=== PATIENT | female | born 1985 | race Caucasian/White ===

== ENCOUNTER 2019-10-14 10:00 | Emergency (ER) | payer OTHER, SELFPAY ==
[2019-10-14 10:09] VITALS: BP 131/68; PULSE 86; RESP 20; TEMP 37.1; O2SAT 98
--- NOTE | 2019-10-14 10:17 | WPDEDEXPGENP ---
HPI - General Ped General Chief complaint: Upper Respiratory Infection Stated complaint: sore throat and congestion Time Seen by Provider: 10/14/19 10:18 Source: patient and RN notes reviewed Mode of arrival: ambulatory Limitations: no limitations Nursing Documentation: reviewed/agree History of Present Illness HPI narrative: This is a 34 years old female presents to the office for an evaluation of congestion/sore throat since last night. Denies fever however she felt warm this morning while she is at work.States, she is prone to bronchitis and strep. She does not smoke. Denies sick contact. She normally does not get influenza vaccine due to to concern for infection. Related Data Allergies Allergy/AdvReac Type Severity Reaction Status Date / Time amoxicillin Allergy Unknown Unknown Verified 10/14/19 10:23 Penicillins Allergy Unknown Unknown Verified 10/14/19 10:23 sulfamethoxazole Allergy Unknown Verified 10/14/19 10:23 [From Bactrim] trimethoprim [From Bactrim] Allergy Unknown Verified 10/14/19 10:23 Sulfa (Sulfonamide AdvReac Nausea and Verified 10/14/19 10:22 Antibiotics) Vomiting Pediatric Review of Systems : Review of Systems: CONSTITUTIONAL: Denies fever. Reports chills,warmth ENT: Denies ears pain. Reports sinus congestion/throat pain CARDIOVASCULAR: Denies chest pain RESPIRATORY: Denies dyspnea, wheezing. Reports little cough GASTROINTESTINAL: Denies abdominal pain, nausea, vomiting, diarrhea. GENITOURINARY: Denies urinary symptoms or discharge SKIN: Denies rash MUSCULOSKELETAL: Denies acute back pain NEUROLOGIC: Denies lightheaded PMFSH Social History Social History (Updated 10/14/19 @ 10:29 by OTIS Pena) Smoking status: Never smoker Comments At time of signature, I agree with nursing past medical, surgical, social and family history. There is no relevant family history pertinent to the presenting complaint. Pediatric Exam Narrative: Physical exam: GENERAL: This is a well-nourished, well-developed patient, in no apparent distress. Obese EYES: Sclera clear/white. Vision is grossly intact. EARS: External ears normal, auditory canals clear and without drainage, TMs normal without perforation. Hearing grossly intact. NOSE: External nose normal with no obvious nasal discharge, nares without redness, no rhinorrhea. THROAT: Mucous membranes moist, posterior pharynx erythema and edematous NECK: Neck supple, non-tender without lymphadenopathy, masses or thyromegaly. CARDIOVASCULAR: Regular rate and rhythm without murmurs, gallops, or rubs. RESPIRATORY: Clear to auscultation. Breath sounds equal bilaterally. No wheezes, rales, or rhonchi. GASTROINTESTINAL: Abdomen soft, non-tender, nondistended. Bowel sounds are active. No guarding. SKIN: warm, intact with no suspicious lesions or rash, good texture and turgor. NEURO: awake, alert, and oriented to person, place and time. There were no obvious focal neurologic abnormalities. Steady gait Polly Coma Scale Eye Opening: Spontaneous 4 [place] Coma Scale Motor: Obeys Commands 6 [place] Coma Scale Verbal: Oriented 5 Course Vital Signs Vital signs: Vital Signs Temperature 98.8 F 10/14/19 10:09 Pulse Rate 86 10/14/19 10:09 Respiratory Rate 10/14/19 10:09 Blood Pressure 131/68 10/14/19 10:09 Pulse Oximetry 98 10/14/19 10:09 Temperature 98.8 F 10/14/19 10:09 Pulse Rate 86 10/14/19 10:09 Respiratory Rate 10/14/19 10:09 Blood Pressure 131/68 10/14/19 10:09 Pulse Oximetry 98 10/14/19 10:09 Medical Decision Making MDM Narrative Medical decision making narrative: Discharge instructions reviewed with patient, as well as provided in writing per nursing staff. The instructions also include specific and strict return/GO TO THE ER as well as f/u information. All questions have been answered, and the patient deny any further questions with discharge and discharge plan. Differential Diagnosis Differentia
== END 2019-10-14 10:30 | disposition home or self-care (01) ==
PROVIDERS: Emergency Provider Nurse Practitioner; PCP Family Medicine
DX: J02.9 Acute pharyngitis, unspecified (principal)
CPT/HCPCS: 87081; 87880; 99213; G0463

== ENCOUNTER 2019-10-23 17:01 | Emergency (ER) | payer OTHER, SELFPAY ==
[2019-10-23 17:38] VITALS: BP 158/89; PULSE 97; RESP 20; TEMP 36.7; O2SAT 98
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
== END 2019-10-23 18:50 | disposition home or self-care (01) ==
PROVIDERS: Emergency Provider Nurse Practitioner; PCP Family Medicine
DX: M54.5 Low back pain (principal); S80.212A Abrasion, left knee, initial encounter; S80.211A Abrasion, right knee, initial encounter; W18.09XA Striking against other object with subsequent fall, initial encounter
CPT/HCPCS: 99213; G0463